=== PATIENT | male | born 1945 | race Caucasian/White ===

== ENCOUNTER 2016-10-18 18:57 | Emergency (ER) | payer MEDICARE, OTHER ==
--- NOTE | 2016-10-18 19:30 | CT REPORT ---
HISTORY: Fall COMPARISON: None. TECHNIQUE: Axial non-contrast images obtained from skull vertex through foramen magnum. Dose reduction technique was utilized. FINDINGS: BRAIN: There is age related atrophy. No acute intracranial hemorrhage. No mass effect or hydrocephalus. T here is no CT evidence of infarction. BONES AND EXTRACRANIAL SOFT TISSUES: There has been prior cataract surgery. The paranasal sinuses and mastoid air cells are clear. The ca lvarium is intact. IMPRESSION: 1. No acute intracranial abnormality. 2. Age related atrophy. Final Electronic Signature: This report was electronically signed by Steve Belle MD on 10/18/2016 7:27 PM. dave /
--- NOTE | 2016-10-18 19:30 | RADIOLOGY REPORT ---
HISTORY: Fall COMPARISON: None. FINDINGS: 3 views of the left hip(s) and pelvis obtained. There is no gross fracture. Femoral heads well appr oximated to the acetabuli bilaterally. No lytic or sclerotic lesion. Mild to moderate DJD of the bi lateral hips. IMPRESSION: No acute osseous abnormality. 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 Final Electronic Signature: This report was electronically signed by Steve Belle MD on 10/18/2016 7:28 PM. dave /
[2016-10-18] MEDS ORDERED: ONDANSETRON ODT 4 MG TAB.RAPDIS ONE (19:42)
[2016-10-18] MEDS ORDERED: ONDANSETRON ODT PREPAC 4 MG TAB.RAPDIS PO ONE (20:06)
--- NOTE | 2016-10-18 20:18 | ER PHYSICIAN DOCUMENTATION ---
Physician Documentation [facility] Name:Willem Stapleton Age:71 yrs Sex:Male :1945 Arrival Date:10/18/2016 Time:18:57 BedTrauma-A Private MD: Gonzalez Rocha Disposition: 10/18/16 19:43 Discharged to Home/Self Care. Impression: Head Contusion, Unspecified Part of Head, Hip Contusion. - Condition is Good. - Discharge Instructions: HIP CONTUSION, Brain Concussion - CONCUSSION, No Wake Up. - Medical Reconciliation form form. - Follow up: Private Physician; When: As needed; Reason: Continuance of care. - Problem is new. - Symptoms have improved. HPI: 10/18 19:00 This 71 yrs old Male presents to ER via Private Vehicle with complaints of jm Head Injury-Adult. 19:00 The patient or guardian reports injury, pain, swelling, tenderness. The complaints jm affect the left side of the back of head. Context of injury: resulted from a fall. Onset: The symptom(s)/episode began/occurred just prior to arrival. Associated signs and symptoms: Pertinent positives: loss of conciousness, headache. Severity of symptoms: in the emergency department the symptoms are unchanged. Intracranial bleed risk factors: age over 60, on anticoagulants or bleeding tendency. The patient has not experienced similar symptoms in the past. The patient has not recently seen a physician. Pt tripped and fell down some rocks and hit his head. Brief LOC, but pt is on plavix and has a bad DAVIS. . Historical: - Allergies: No known drug Allergies; - Home Meds: 1. amlodipine oral 2. Imdur Oral 3. losartan oral 4. rosuvastatin oral 5. Aspirin EC Oral 6. Metoprolol Tartrate Oral 7. Metformin Oral 8. Plavix Oral - Tetanus: < 10 years. - Ebola Screening: : Patient negative for fever greater than or equal to 101.5 degrees Fahrenheit, and additional compatible Ebola Virus Disease symptoms. Patient denies exposure to infectious person. Patient denies travel to an Ebola-affected area in the 21 days before illness onset. No symptoms or risks identified at this time. . - Immunization history: Pneumococcal vaccine is up to date, Flu Vaccine < 1 year. - Social history: Smoking status: Patient states former smoker of tobacco. Patient/guardian denies using alcohol, street drugs, IV drugs, marijuana. ROS: 19:00 Constitutional: Negative for fatigue, fever. 19:00 Eyes: Negative for blurry vision. 19:00 Neck: Positive for stiffness, Negative for injury or acute deformity, swelling. 19:00 Abdomen/GI: Positive for nausea, Negative for vomiting. 19:00 Neuro: Positive for dizziness, headache, loss of consciousness. 19:00 All other systems are negative. Exam: 19:00 Constitutional: The patient appears alert, awake. 19:00 Head/face: Noted is contusion, that is superficial, of the left side of the back of head. 19:00 Eyes: Pupils: equal, round, and reactive to light and accomodation, Extraocular movements: intact throughout. 19:00 ENT: Mouth: is normal, Voice: is normal. 19:00 Neck: C-spine: appears grossly normal, Thyroid: appears normal, Trachea: is midline with no obvious abnormalities. 19:00 Cardiovascular: Rate: normal, Rhythm: regular. 19:00 Respiratory: the patient does not display signs of respiratory distress, Respirations: normal. 19:00 Abdomen/GI: Bowel sounds: normal, Palpation: abdomen is soft and non-tender. 19:00 Skin: Appearance: Color: normal in color, no rash present. 19:00 Neuro: Orientation: is normal, Mentation: is normal, Motor: is normal, Sensation: is normal. 19:00 Psych: Behavior/mood is pleasant, cooperative, Affect is calm. Vital Signs: 18:58 BP 140 / 75 (auto/); sc1 19:01 Pulse Ox 93% ; sc1 19:01 Pulse 75; Resp 18; Temp 98.1; sc1 [place] Coma Score: 19:02 Eye Response: spontaneous(4). Verbal Response: oriented(5). Motor Response: obeys sc1 commands(6). Total: 15. Trauma Score (Adult): 20:17 Eye Response: spontaneous(1); Verbal Response: oriented(1); Motor Response: obeys sc1 commands(2); Systolic BP: > 89 mm Hg(4); Respiratory Rate: 10 to 29 per min(4); [place] Score: 15; Trauma Score: 12 MDM: 19:01 Patient medically screened. 10/19 01:14 Differential diagnosis: Contusion of Hematoma on Intracranial bleed- Concussion. charu Neurological re-evaluation: normal neurological exam including cranial nerves, orientation, mentation, motor and sensory exam, cerebellar testing, GCS normal, and normal gait. Data reviewed: vital signs, nurses notes, radiologic studies, and as a result, I will discharge patient. Counseling: I had a detailed discussion with the patient and/or guardian regarding: the historical points, exam findings, and any diagnostic results supporting the discharge/admit diagnosis, radiology results, the need for outpatient follow up, with the patient's primary care provider. ED course: CToH normal. Dx is head contusion. . 10/18 19:32 Order name: CAT SCAN; HEAD W/O CON [id number] EDMS 10/18 19:32 Order name: HIP;W/PEL 2-3 [place] [id number] EDMS Dispensed Medications: 10/18 19:25 Drug: Zofran 4 mg; Route: PO; sc1 19:38 Follow up: Response: No adverse reaction; Nausea is decreased sc1 20:17 Drug: Zofran 1 tablet; Route: PO; sc1 20:17 Follow up: Response: Pharmacy closed - take home med pack sc1 Signatures: Lana Fung RN RN sc1 Gonzalez Hewitt MD MD jm
--- NOTE | 2016-10-18 20:18 | ER NURSING DOCUMENTATION ---
Nurse's Notes [facility] Name:Willem Stapleton Age:71 yrs Sex:Male :1945 Arrival Date:10/18/2016 Time:18:57 BedTrauma-A Private MD: Diagnosis:Head Contusion, Unspecified Part of Head;Hip Contusion Presentation: 10/18 19:02 Presenting complaint: Patient states: fell down a hill while playing with granddaughter sc1 striking back of head, c/o left hip and shoulder pain. Transition of care: patient was not received from another setting of care. Mechanism of Injury: resulted from a fall, from a standing position. 19:02 Acuity: JONI 3 pa1 19:02 Method Of Arrival: Private Vehicle [facility] Triage Assessment: 19:08 General: Appears in no apparent distress, well developed, well nourished, well groomed, pa1 Behavior is cooperative, pleasant. Pain: Complains of pain in back of head left hip and shoulder. Neuro: Level of Consciousness is awake, alert, Oriented to person, place, time, event, Reports headache. Historical: - Allergies: No known drug Allergies; - Home Meds: 1. amlodipine oral 2. Imdur Oral 3. losartan oral 4. rosuvastatin oral 5. Aspirin EC Oral 6. Metoprolol Tartrate Oral 7. Metformin Oral 8. Plavix Oral - Tetanus: < 10 years. - Ebola Screening: : Patient negative for fever greater than or equal to 101.5 degrees Fahrenheit, and additional compatible Ebola Virus Disease symptoms. Patient denies exposure to infectious person. Patient denies travel to an Ebola-affected area in the 21 days before illness onset. No symptoms or risks identified at this time. . - Immunization history: Pneumococcal vaccine is up to date, Flu Vaccine < 1 year. - Social history: Smoking status: Patient states former smoker of tobacco. Patient/guardian denies using alcohol, street drugs, IV drugs, marijuana. Screenin:11 Infectious Disease Risk None. Abuse screen: Denies threats or abuse. Nutritional sc1 screening: No deficits noted. Vital Signs: 18:58 BP 140 / 75 (auto/); sc1 19:01 Pulse Ox 93% ; sc1 19:01 Pulse 75; Resp 18; Temp 98.1; sc1 Amada Coma Score: 19:02 Eye Response: spontaneous(4). Verbal Response: oriented(5). Motor Response: obeys sc1 commands(6). Total: 15. Trauma Score (Adult): 20:17 Eye Response: spontaneous(1); Verbal Response: oriented(1); Motor Response: obeys sc1 commands(2); Systolic BP: > 89 mm Hg(4); Respiratory Rate: 10 to 29 per min(4); [place] Score: 15; Trauma Score: 12 ED Course: 18:58 Patient arrived in ED. arc 19:01 Gonzalez Hewitt MD is Attending Physician. charu 19:02 Lana Fung RN is Primary Nurse. sc1 19:05 Triage completed. sc1 19:[address] pm1 19:11 Notified ED Physician of patient's arrival and chief complaint. Dr. Hewitt notified. Arm sc1 band placed on Bed in low position Call Light in Reach Gowned HOB Elevated Side rails up x2. CT done X-ray ordered. 20:18 Valuables Remains with patient. pa1 Administered Medications: 19:25 Drug: Zofran 4 mg; Route: PO; pa1 19:38 Follow up: Response: No adverse reaction; Nausea is decreased [facility] 20:17 Drug: Zofran 1 tablet; Route: PO; pa1 20:17 Follow up: Response: Pharmacy closed - take home med pack [facility] [place] Outcome: 19:43 Discharge ordered by . 20:17 Discharged to home ambulatory. [facility] 20:17 Condition: stable 20:17 Discharge instructions given to patient, Instructed on discharge instructions, follow up and referral plans. medication usage, Demonstrated understanding of instructions. 20:18 Patient left the ED. [facility] Signatures: Lana Fung, ADELAIDA RN pa1 Gonzalez Hewitt MD MD jm McBride, Philisha 1 Chew, Jillian, Reg Reg arc
== END 2016-10-18 20:18 | disposition home or self-care (01) ==
LOC: ER 18:57
DX: S00.03XA Contusion of scalp, initial encounter (principal); S70.02XA Contusion of left hip, initial encounter; W01.0XXA Fall on same level from slipping, tripping and stumbling without subsequent striking against object, initial encounter; Y92.89 Other specified places as the place of occurrence of the external cause; Y93.01 Activity, walking, marching and hiking; M54.2 Cervicalgia; R11.0 Nausea; R42 Dizziness and giddiness; Z79.02 Long term (current) use of antithrombotics/antiplatelets; Z79.899 Other long term (current) drug therapy; Z79.82 Long term (current) use of aspirin
CPT/HCPCS: 70450; 99284; 99285